=== PATIENT | female | born 1995 | race Hispanic/Latino ===

== ENCOUNTER 2018-07-06 14:38 | Emergency (ER) | payer MEDICAID, OTHER ==
[2018-07-06 15:03] LABS: Bilirubin Negative (Negative); Blood, Urine Negative (Negative); Clarity CLEAR (Clear); Glucose, Urine (Dipstick) Negative (Negative); Leukocyte Negative (Negative); Nitrite Negative (Negative); Protein, Urine (Dipstick) Negative (Neg-Trace); Specific Gravity, Urine 1.003 (1.002-1.036); Urobilinogen 0.2 mg/dL (0.2-1.0)
[2018-07-06 15:04] LABS: Pregnancy Test - Urine (BHCG) POSITIVE (Negative); Pregu Control Background? CLEAR/WHITE (CLR/WHITE); Pregu Control Bar Appear? YES (CONTROL BAR); Specific Gravity 1.003 (1.002-1.036)
[2018-07-06 15:18] LABS: #Basophils 0.1 thou/uL (0.0-0.2); #Lymphocytes 1.4 thou/uL (1.20-3.40); #Monocytes 0.3 thou/uL (0.11-0.59); #Neutrophils 3.7 thou/uL (1.40-6.50); %Basophils 1.2 % (0.0-1.0); %Eosinophils 0.4 % (0.0-10.0); %Lymphocytes 25.9 % (21.0-51.0); %Monocytes 5.2 % (0.0-10.0); %Neutrophils 67.3 % (42.0-75.0); Hemoglobin 11.8 g/dL (12.0-16.0); Mean Corpuscular Hemoglobin 32.1 pg (27.0-31.0); Mean Corpuscular Volume 94.4 fL (78.0-98.0); Mean Platelet Volume 7.2 fL (7.4-10.4); Platelet Count 264 thou/uL (130-400); Red Blood Cell (RBC) Count 3.69 mill/uL (4.20-5.40); White Blood Cell (WBC) Count 5.4 thou/uL (4.8-10.8)
[2018-07-06 15:40] LABS: ALT (SGPT) 12 U/L (8-55); AST (SGOT) 18 U/L (5-34); Albumin 3.7 g/dL (3.5-5.0); Alkaline Phosphatase 41 U/L (40-150); Anion Gap 11 mmol/L (10-20); BUN (Urea Nitrogen) 5 mg/dL (7.0-18.7); Bilirubin, Total 0.3 mg/dL (0.2-1.2); Calc. Creatinine Clearance 0 mL/min (70-130); Calcium 8.6 mg/dL (7.8-10.44); Carbon Dioxide 20 mmol/L (22-29); Chloride 106 mmol/L (98-107); Estimated GFR-MDRD Greater than 90; Globulin 3.3 g/dL (2.4-3.5); Glucose 86 mg/dL (70-105); Lipase 23 U/L (8-78); Potassium 3.6 mmol/L (3.5-5.1); Sodium 133 mmol/L (136-145)
== END 2018-07-06 17:10 | disposition home or self-care (01) ==
LOC: ERS 14:38
DX: O99.89 Other specified diseases and conditions complicating pregnancy, childbirth and the puerperium (principal); R10.9 Unspecified abdominal pain; Z3A.18 18 weeks gestation of pregnancy
CPT/HCPCS: 36415; 80053; 81003; 81025; 83690; 84702; 85025; 99284

== ENCOUNTER 2018-11-24 06:41 | Inpatient (IN) | payer MEDICAID, OTHER, SELFPAY ==
[2018-11-24] MEDS ORDERED: Oxytocin 10 UNITS/ML VIAL ONE (06:58)
[2018-11-24] MEDS ORDERED: NS / Oxytocin 40 units/1000ml 1,000 ML ONE (07:02)
[2018-11-24] MEDS ORDERED: Misoprostol 200 MCG TAB PR PRN (07:03)
[2018-11-24] MEDS ORDERED: Lidocaine 1% (PF) 30 ML VIAL SC PRN (07:03)
[2018-11-24] MEDS ORDERED: NS / Oxytocin 40 units/1000ml 1,000 ML IV PRN (07:03)
[2018-11-24] MEDS ORDERED: Ondansetron PF 4 MG/2 ML Vial IVP PRN (07:03)
[2018-11-24] MEDS ORDERED: Promethazine HCl 25 MG/ML VIAL IM PRN (07:03)
[2018-11-24] MEDS ORDERED: Milk Of Magnesia 30 ML UDCUP PO PRN (07:19)
[2018-11-24] MEDS ORDERED: Preparation H Ointment 28 GM TUBE PR PRN (07:19)
[2018-11-24] MEDS ORDERED: Bisacodyl 10 MG SUPP PR PRN (07:19)
[2018-11-24] MEDS ORDERED: Lanolin Ointment 7 GM TUBE TOP PRN (07:19)
[2018-11-24] MEDS ORDERED: Benzocaine/Menthol 20-0.5% 60 ML CAN TOP PRN (07:19)
[2018-11-24] MEDS ORDERED: Adacel (T-DAP) 0.5 ML SYRINGE IM ONE (07:19)
--- NOTE | 2018-11-24 07:23 | PDOC.FPROB ---
FMR OB H&P: HPI - History of Present Illness Chief Complaint: Active Labor Indentification: 23 yo History of Present Illness: This is a 23 yo at 38.5 by LMP c/w 8.6wk US who presents to L&D, ruptured, and in active labor. She states the she started feeling contractions at ~0001 11/24, SROM at 0600. She denies headaches, chest pain, shortness of breath, or severe abdominal pain. Primary Care Physician: Roque Stallworth MD FMR OB H&P: Current - Care : 5 Para: 3013 Gestational age: 38.5 Due date: 12/03/18 Dating Criteria: LMP c/w 8.6wk US - OB Labs Blood type: A RH: positive Antibody Screen: negative HIV: negative RPR: negative HepBsAg: negative Rubella: immune Gonorrhea: negative Chlamydia: negative 1 hour gtt: 92 GBS: positive Additional labs: Varicella Zoster immune FMR OB H&P: History - Past Medical History PMH: none - OB History OB History: 1st 39 wks, 6lb 12oz vaginal 2nd 39 wks, 7lb 0oz vaginal 3rd 38 wks, 7lb 13oz vaginal 4th 5 wk spontAb - Surgical History Sx History: none - Social History Social History: Serbian speaking - Family History Family History: Maternal grandparents FMR OB H&P: Medications - Current Home Medications: Medication Instructions Recorded Confirmed Type 21/Iron Fu/Folic Acid 1 cap PO DAILY 01/26/15 09/20/16 History [ Complete Caplet] Ibuprofen [Motrin] 600 mg PO Q8HR PRN #25 tab 09/21/16 Rx Allergies/Adverse Reactions: Allergies Allergy/AdvReac Type Severity Reaction Status Date / Time No Known Allergies Allergy Verified 01/26/15 09:08 FMR OB H&P: ROS - Review of Systems General: denies: fever/chills, weight/appetite/sleep changes Eyes: denies: eye pain, vision changes ENT: denies: nasal congestion, rhinorrhea Cardiovascular: reports: edema (trace). denies: chest pain, palpitation Gastrointestinal: denies: abdominal pain, indigestion, cramping Genitourinary (Female): reports: contractions, vaginal pressure Musculoskeletal: denies: pain, stiffness, tenderness Neurologic: denies: numbness, syncope Integumentary: denies: itching, lesions Hematologic/Lymphatic: denies: prolonged or excessive bleeding Psychological: denies: depression, anxiety FMR OB H&P: Physical Exam - Physical Exam General: NAD, awake, alert and oriented HEENT: normocephalic and atraumatic, MMM, oropharynx clear Neck: supple, FROM Chest: non-tender to palpation, no lesions Heart: RRR, normal S1/S2, no murmurs/rubs/gallops, pulses present, no edema General: CTAB, no respiratory distress, good air movement, no wheezing Abdomen: soft, gravid, non-tender, bowel sound present Musculoskeletal: normal gait and station, pulses present, FROM in all four extremities Neurological: cranial nerves II through XII intact, no focal deficit Skin: capillary refill <2 seconds Lymphatic: no purpura, no petechia Psychiatric: intact recent and remote memory - Pelvic Exam SVE: 10/100/+2 FMR OB H&P: A/P - Problem List (1) Term Current Visit: Yes Status: Acute Code(s): Z34.80 - ENCOUNTER FOR SUPRVSN OF NORMAL , UNSP TRIMESTER (2) GBS (group B streptococcus) infection Current Visit: Yes Status: Acute Code(s): A49.1 - STREPTOCOCCAL INFECTION, UNSPECIFIED SITE Disposition: This is a 23 yo at 38.5 wks by LMP c/w 8.6wk Term in active labor -Admit to L&D -Prepare for imminent delivery -Cervical check at time of arrival 10 with anterior lip/ 100/+2 GBS positive -Preparing for delivery, pt received no prophylaxis Discussion: Date/Time: 11/24/18 0721 This H&P was discussed with Dr. Stallworth who agree with the above documentation and plan. Signature: Ramiro Young DO PGY-1
[2018-11-24 07:30] LABS: Hemoglobin 13.6 g/dL (12.0-16.0); Mean Corpuscular HGB CONC 33.5 g/dL (32.0-36.0); Mean Corpuscular Hemoglobin 31.1 pg (27.0-31.0); Mean Corpuscular Volume 92.8 fL (78.0-98.0); Mean Platelet Volume 7.7 fL (7.4-10.4); Platelet Count 271 thou/uL (130-400); RBC Distribution Width 11.5 % (11.5-14.5); Red Blood Cell (RBC) Count 4.36 mill/uL (4.20-5.40); White Blood Cell (WBC) Count 12.6 thou/uL (4.8-10.8)
[2018-11-24] MEDS ORDERED: NS / Oxytocin 40 units/1000ml 1,000 ML IV SCH (07:30)
--- NOTE | 2018-11-24 08:06 | PDOC.OPDEL ---
OB Operative/Delivery Note Delivery Dr/Surgeon: Ramiro Young DO Assist: Zakiya Fisher DO, Roque Stallworth MD Pre-Delivery Diagnosis: active labor, ruptured membrane Procedure/Post Delivery Dx: spontaneous vaginal delivery Weeks gestation: 38 Anesthesia: none - Findings A Sex: female - 1 min: 9 - 5 min: 9 - Additional Findings/Plan Placenta delivered: spontaneous Repaired Obstetrical Laceration: none Compilations/Other Findings: Mom GBS positive, no prophylaxis Post delivery plan: routine recovery
[2018-11-24 08:08] VITALS: BMI 25.6
[2018-11-24 11:50] LABS: Syphilis Antibody Nonreactive (Nonreactive); Syphilis Antibody Index 0.05 S/CO (<1.00 Non-Reactive)
[2018-11-24 11:52] LABS: HBSAg Index 0.21 S/CO (0-0.99); Hep B Surf Ag Non-Reactive S/CO (NonReactive)
[2018-11-24] MEDS: Ibuprofen 800 MG TAB PO SCH ×2 (12:15→21:10)
[2018-11-24] MEDS: Ferrous Sulfate 325 MG TAB PO SCH (18:48)
[2018-11-24] MEDS: Docusate Calcium (SURFAK) 240 MG CAP PO SCH ×2 (18:48→21:10)
[2018-11-24] MEDS: Prenatal Vitamin 1 TAB PO SCH (18:49)
[2018-11-24] MEDS: Lactated Ringer's 1,000 ML IV SCH ×2 (18:52→22:47)
[2018-11-25] MEDS: Ibuprofen 800 MG TAB PO SCH ×3 (05:24→21:52)
--- NOTE | 2018-11-25 05:31 | PDOC.PP ---
Post Progress Note Post Day #: 1 Subjective: Pt states she has been up walking and has no trouble urinating. She state she has not passed gas or had a bowel movement. She states her pain is controlled with the pain meds. She denies headaches, chest pain, SOB, eye pain, or changes in her vision. She asked how long her eye would be red. PO intake tolerated: yes Flatus: no Ambulation: yes Vital Signs (12 hours) Temp Pulse Resp BP Pulse Ox 11/25/18 00:33 98.1 F 84 18 101/57 L 98 11/24/18 20:15 98.5 F 91 18 108/57 L 98 Weight Weight 63.503 kg - Physical Examination General: NAD Cardiovascular: no m/r/g, RRR Respiratory: clear to auscultation bilaterally, non-labored breathing Abdominal: + bowel sounds, lochia (minimal), no distention, appropriately TTP Fundus firm & at: 4cm below umbilicus Extremities: negative homans (B) Skin: no rash Neurological: no gross focal deficits Psychiatric: A&Ox3, normal affect Result Diagrams: 11/24/18 07:00 Additional Labs: Post Labs Blood Type A POSITIVE 11/24/18 07:00 Hep Bs Antigen Non-Reactive S/CO (NonReactive) 11/24/18 10:46 (1) Term Code(s): Z34.80 - ENCOUNTER FOR SUPRVSN OF NORMAL , UNSP TRIMESTER Status: Acute (2) GBS (group B streptococcus) infection Code(s): A49.1 - STREPTOCOCCAL INFECTION, UNSPECIFIED SITE Status: Acute - Assessment/Plan This is a 23 yo G5 now P4014 who delivered via at 0706 (11/24) Term delivered -Routine care -Encourage early ambulation -Encourage breast feeding -Encourage PO intake -Afebrile overnight Subconjuctival hemorrhage -monitor, no change in vision or pain GBS positive with inadequate prophylaxis -Monitor for signs of infection Addendum - Attending - Attending Attestation Date/Time: 11/25/18 3377 I personally evaluated the patient and discussed the management with Dr. Young I agree with the History, Examination, Assessment and Plan documented above with any addition or exceptions noted below- Patient without complaints. Afebrile VSS. A/P: 1) PPD#1 s/p - continue routine care.
[2018-11-25] MEDS: Lactated Ringer's 1,000 ML IV SCH ×3 (07:41→19:16)
--- NOTE | 2018-11-25 08:51 | DN ---
DATE OF PROCEDURE: 11/24/2018 DELIVERING PHYSICIANS: Ramiro Young DO, PGY-1 and Josefa Castellanos DO, PGY -2. PROCEDURE PERFORMED: Spontaneous vaginal delivery. ANESTHESIA: None. ESTIMATED BLOOD LOSS: 100 mL. PREOPERATIVE DIAGNOSIS: Term intrauterine , in labor. POSTOPERATIVE DIAGNOSIS: Term intrauterine , delivered. INDICATIONS FOR PROCEDURE: A 23-year-old, G5, P3-0-1-3 at 38 and 5 by LMP confirmed with 8.6-week ultrasound, presents in active labor, complete. DESCRIPTION OF PROCEDURE: This is a 23-year-old female, G5, P3-0-1-3 at 38.5 weeks, delivered a viable female infant at 0706 hours. Following an uneventful antepartum course, a vigorous female was delivered over intact perineum in the occipitoanterior position. Anterior shoulder and the remainder of the body was delivered. No nuchal cord. Head was held down. Mouth and nares were bulb suctioned. Cord was clamped and cut, cord blood was collected. Placenta delivered intact with three-vessel cord noted. Fundal massage was performed and the fundus was firm. Cervix and vagina were inspected and found to be free of lacerations. The infant went to nursery in good condition for routine care. Apgars were 9 and 9 at 1 and 5 minutes respectively. The patient tolerated delivery, went to after routine/recovery care. Job ID: [id number] [facility]
[2018-11-25] MEDS: Docusate Calcium (SURFAK) 240 MG CAP PO SCH ×2 (09:11→21:52)
[2018-11-25] MEDS: Prenatal Vitamin 1 TAB PO SCH (09:11)
[2018-11-25] MEDS: Ferrous Sulfate 325 MG TAB PO SCH ×2 (09:13→18:12)
--- NOTE | 2018-11-26 05:27 | PDOC.PP ---
Post Progress Note Post Day #: 2 PO intake tolerated: yes Flatus: yes Ambulation: yes Vital Signs (12 hours) Temp Pulse Resp BP Pulse Ox 11/25/18 20:05 98.2 F 84 16 102/55 L 98 Weight Weight 63.503 kg - Physical Examination General: NAD Cardiovascular: no m/r/g, RRR Respiratory: clear to auscultation bilaterally, non-labored breathing Abdominal: + bowel sounds, lochia, no distention, appropriately TTP Fundus firm & at: 2 cm below umbilicus Extremities: negative homans (B) Neurological: no gross focal deficits Psychiatric: A&Ox3, normal affect Result Diagrams: 11/24/18 07:00 Additional Labs: Post Labs Blood Type A POSITIVE 11/24/18 07:00 Hep Bs Antigen Non-Reactive S/CO (NonReactive) 11/24/18 10:46 (1) Term Code(s): Z34.80 - ENCOUNTER FOR SUPRVSN OF NORMAL , UNSP TRIMESTER Status: Acute (2) GBS (group B streptococcus) infection Code(s): A49.1 - STREPTOCOCCAL INFECTION, UNSPECIFIED SITE Status: Acute - Assessment/Plan This is a 23 yo G5 now P4014 who delivered via at 0706 (11/24) Term delivered -Routine care -Encourage early ambulation -Encourage breast feeding -Encourage PO intake -Afebrile overnight Subconjuctival hemorrhage -monitor, no change in vision or pain GBS positive with inadequate prophylaxis -Monitor for signs of infection Addendum - Attending - Attending Attestation Date/Time: 11/26/18 1113 I personally evaluated the patient and discussed the management with Dr. Young I agree with the History, Examination, Assessment and Plan documented above with any addition or exceptions noted below- Patient without complaints. Ambulating/voiding. Afebrile VSS. A/P: 1) PPD#2 s/p - doing well. Plan to d/ c home today. F/U in 2 weeks at [facility].
[2018-11-26] MEDS: Ibuprofen 800 MG TAB PO SCH (05:56)
[2018-11-26] MEDS: Lactated Ringer's 1,000 ML IV SCH (05:58)
[2018-11-26] MEDS: Ferrous Sulfate 325 MG TAB PO SCH (07:20)
[2018-11-26 08:20] VITALS: BP 117/73; TEMP 97.9
[2018-11-26] MEDS: Prenatal Vitamin 1 TAB PO SCH (08:58)
[2018-11-26] MEDS: Docusate Calcium (SURFAK) 240 MG CAP PO SCH (08:58)
== END 2018-11-26 12:39 | disposition home or self-care (01) | DRG 807 ==
LOC: L&D/OP 06:41 → L&D 07:42 → 3SE 09:31
PROVIDERS: ADMIT Family Medicine; ATTEND Family Medicine
PROC: 10E0XZZ Delivery of Products of Conception, External Approach (ICD-10-PCS; principal; 2018-11-24)
DX: O99.824 Streptococcus B carrier state complicating childbirth (principal); Z37.0 Single live birth; Z3A.38 38 weeks gestation of pregnancy; O99.89 Other specified diseases and conditions complicating pregnancy, childbirth and the puerperium; H11.30 Conjunctival hemorrhage, unspecified eye
CPT/HCPCS: 36415; 85027; 86780; 86850; 86900; 86901; 87340; 99285; J2590